=== PATIENT | female | born 1960 | race Caucasian/White ===

== ENCOUNTER 2019-05-30 18:27 | Emergency (ER) | payer MEDICARE, BC, SELFPAY ==
--- NOTE | ~2019-05-30 | CT_ITS ---
EXAMINATION: CT brain wo con DATE: 05/30/2019 18:59 INDICATION: Histiocytosis. Pituitary tumor. TECHNIQUE: Computed tomography (CT) of the head was performed without intravenous contrast. The dose- length product was 605.33 mGy-cm. The mA was adjusted according to patient size. Iterative reconstruc tion technique was employed. COMPARISON: CT dated 04/07/2018 FINDINGS: Generalized atrophy. There are scattered mild periventricular and subcortical white matter changes, most likely related to small vessel ischemic disease (microangiopathy). No acute intracrania l hemorrhage, infarction, mass or mass effect. No ventriculomegaly or midline shift. Basilar cisterns are patent. Paranasal sinuses and mastoids are pneumatized. No depressed skull fractures. No pituita ry masses are identified. Midline sagittal images are unremarkable. IMPRESSION: 1. No acute intracranial abnormality. Reviewed, dictated and finalized at location A.
--- NOTE | 2019-05-30 18:31 | ED.NAVMDI ---
HPI - Nausea/Vomiting/Diarrhea General Chief complaint: Abdominal Pain <Jude Boswell MD - Last Filed: 05/30/19 20:19> Stated complaint: N/V/D <Jude Boswell MD - Last Filed: 05/30/19 20:19> Time Seen by Provider: 05/30/19 18:30 <Jude Boswell MD - Last Filed: 05/30/19 20:19> Source: patient and family () <Jude Boswell MD - Last Filed: 05/30/19 20:19> Mode of arrival: EMS <Jude Boswell MD - Last Filed: 05/30/19 20:19> Limitations: no limitations <Jude Boswell MD - Last Filed: 05/30/19 20:19> History of Present Illness HPI Narrative: A 59 y/o female presents to the ED, via EMS, with c/o N/V/D. Pt states that the N/V/D started 3-4 days and has been constant since. She notes that she has had chronic diarrhea and vomiting for years. Her last episode of emesis was at 1500 today. She reports poor appetite, diffuse ABD pain, generalized weakness, lethargy, and back pain, but denies CP, SOB, cough, and decreased liquid intake. The ABD pain started 2 days ago and is intermittent. She denies any increased stress. 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 The patient's adds that she is at her baseline in the ED. Her last MRI was in February 2019, and she has one scheduled in July 2019. <Jude Boswell MD - Last Filed: 05/30/19 20:19> MD elicited complaint: nausea, vomiting and diarrhea <Jude Boswell MD - Last Filed: 05/30/19 20:19> Onset (ago): day(s) (3-4) <Jude Boswell MD - Last Filed: 05/30/19 20:19> Associated abdominal pain: Yes <Jude Boswell MD - Last Filed: 05/30/19 20:19> Location of pain: diffuse <Jude Boswell MD - Last Filed: 05/30/19 20:19> Pain consistency: intermittent <Jude Boswell MD - Last Filed: 05/30/19 20:19> Associated symptoms: loss of appetite, weakness (Generalized) and other (Diffuse ABD pain, back pain, lethargy) <Jude Boswell MD - Last Filed: 05/30/19 20:19> Related Data Allergies/Adverse reactions: Allergies Allergy/AdvReac Type Severity Reaction Status Date / Time amoxicillin Allergy Unknown Hives / Verified 05/30/19 18:47 Red Face clavulanic acid Allergy Unknown Hives / Verified 05/30/19 18:47 Red Face SHELLFISH Allergy Unknown Unknown Uncoded 05/30/19 18:47 <Jude Boswell MD - Last Filed: 05/30/19 20:19> Review of Systems Review of Systems: All systems reviewed & are unremarkable except as noted in HPI and below <Jude Boswell MD - Last Filed: 05/30/19 20:19> Constitutional: Constitutional: Reports poor appetite, Reports weakness (Generalized) and Reports other (Reports: lethargy; Denies: decreased liquid intake) <Jude Boswell MD - Last Filed: 05/30/19 20:19> Cardiovascular: Cardiovascular: Denies chest pain <Jude Boswell MD - Last Filed: 05/30/19 20:19> Respiratory: Respiratory: Denies cough and Denies dyspnea <Jude Boswell MD - Last Filed: 05/30/19 20:19> Gastrointestinal: Gastrointestinal: Reports abdominal pain (Diffuse), Reports diarrhea, Reports nausea and Reports vomiting <Jued Boswell MD - Last Filed: 05/30/19 20:19> Musculoskeletal: Musculoskeletal: Reports back pain <Jude Boswell MD - Last Filed: 05/30/19 20:19> [facility] Past Medical History Medical History: Medical History (Updated 05/30/19 @ 20:07 by Jude Boswell MD) Brain tumor (benign) According to it is on her pituitary Diabetes GERD (gastroesophageal reflux disease) History of blood transfusion History of chemotherapy History of radiation therapy HTN (hypertension) Hyperlipidemia Hypothyroid Pneumonia UTI (urinary tract infection) <Jude Boswell MD - Last Filed: 05/30/19 20:19> Surgical History Surgical History: Surgical History (Updated 05/30/19 @ 18:42 by Kiersten King) History of hysterectomy <Jude Boswell MD - Last Filed: 05/30/19 20:19> Social History Social History: Social History (Updated 05/30/19 @ 18:42 by Kiersten
[2019-05-30 18:35] VITALS: BP 134/68; PULSE 75; RESP 16; TEMP 36.7; O2SAT 96
[2019-05-30] MEDS: SODIUM CHLORIDE 0.9% IV 1,000 ML 999 ML IV CONT (19:13)
[2019-05-30] MEDS: METOCLOPRAMIDE HCL INJ 10 MG/2 ML VIAL IV PUSH (19:13)
[2019-05-30 19:15] LABS: Basophils Percent Auto 0.2 % (0.2-1.2); Eosinophils Absolute Auto 0.1 K/mm3 (0-0.3); Eosinophils Percent Auto 1.6 % (0-4.4); Immature Granulocyte Absolute 0.01 K/mm3 (0.00-0.031); Immature Granulocyte Percent A 0.2 % (0-0.5); Lymphocytes Absolute Auto 1.54 K/mm3 (0.9-3.2); Lymphocytes Percent Auto 27.8 % (18.3-44.2); Mean Corpuscular HGB Conc 29.7 g/dl (32-36); Mean Corpuscular Volume 77.4 fl (80-100); Mean Platelet Volume 9.7 fl (7.4-10.4); Monocytes Absolute Auto 0.9 K/mm3 (0.1-0.6); Monocytes Percent Auto 16.3 % (2.6-8.5); Neutrophils Percent Auto 53.9 % (45.5-73.1); Platelet Count Result 254 k/mm3 (150-375); Red Blood Count 4.78 M/mm3 (4.2-5.4); White Blood Count 5.5 K/mm3 (4.5-10.0)
[2019-05-30 19:21] VITALS: BP 141/66; PULSE 75; RESP 18; O2SAT 100
[2019-05-30 19:25] LABS: Hypochromasia 2+ (NORMAL); Ovalocytes 1+ (NORMAL); Platelet Estimate Adequate (Adequate); Stomatocytes 1+ (NORMAL)
[2019-05-30 19:26] LABS: Alanine Aminotransferase 19 U/L (4-35); Albumin Level 3.6 g/dL (3.5-5.1); Alkaline Phosphatase 121 U/L (38-126); Aspartate Amino Transferase 33 U/L (14-36); Bilirubin,Total 0.7 mg/dL (0.2-1.3); Blood Urea Nitrogen 3 mg/dL (7-17); Calcium 9.4 mg/dL (8.4-10.2); Carbon Dioxide 29 mmol/L (22-30); Chloride 100 mmol/L (98-107); Estimated Glomerular Filt Rate 42; Glucose 104 mg/dL (65-105); Potassium 2.9 mmol/L (3.4-5.0); Sodium 138 mmol/L (137-145)
[2019-05-30] MEDS: MORPHINE SULFATE 4 MG/ML INJ IV PUSH (20:00)
[2019-05-30] MEDS: ONDANSETRON INJ 4 MG/2 ML VIAL IV PUSH (20:00)
[2019-05-30] MEDS: POTASSIUM CHLORIDE 20 MEQ TABLET 40 MEQ PO (20:07)
[2019-05-30 20:52] VITALS: BP 123/54; PULSE 80; RESP 19; O2SAT 100
[2019-05-30 21:12] LABS: Add Urine Microscopic? NO; Appearance Urine Clear (Clear); Bilirubin Urine Negative (Negative); Blood Urine Negative (Negative); Color Urine Straw (Yellow); Glucose Urine UA Negative (Negative); Ketones Urine Negative (Negative); Leukocyte Esterase Ur Negative LEU/UL (Negative); Nitrate Urine Negative (Negative); Protein Urine Negative (Negative); Specific Grav Ur 1.003 (1.001-1.035); Urobilinogen Urine Negative mg/dL (<2.0)
[2019-05-30 21:41] VITALS: BP 118/65; PULSE 83; RESP 14; TEMP 36.8; O2SAT 96
== END 2019-05-30 21:55 | disposition home or self-care (01) ==
PROVIDERS: Emergency Medicine; Emergency Provider Emergency Medicine
DX: K52.9 Noninfective gastroenteritis and colitis, unspecified (principal); R11.10 Vomiting, unspecified; E87.6 Hypokalemia; E11.9 Type 2 diabetes mellitus without complications; I10 Essential (primary) hypertension; E03.9 Hypothyroidism, unspecified; D33.2 Benign neoplasm of brain, unspecified
CPT/HCPCS: 36415; 51701; 70450; 80053; 81003; 85025; 96361; 96374; 96375; 96376; 99284; A9270; J1200; J2270; J2405; J2765; J7030

== ENCOUNTER 2020-06-08 19:33 | Emergency (ER) | payer MEDICARE, SELFPAY ==
--- NOTE | ~2020-06-08 | CT_ITS ---
EXAMINATION: CT cervical spine wo con DATE: 06/08/2020 20:05 INDICATION: Patient fell and struck face. Neck injury. TECHNIQUE: Computed tomography (CT) of the cervical spine was performed without intravenous contrast. Automated exposure control and iterative reconstruction technique were employed. Exam dose: 475.68 mGy-cm total exam DLP. COMPARISON: None FINDINGS: C1 and C2 are normally aligned and the odontoid process is intact. No fracture or dislocati on or locked facet or prevertebral soft tissue swelling is detected. There is mild degenerative disease and mild retrolisthesis and posterior spurring at C3-4. Moderate degenerative disc disease at C5-6 and C6-7. There is degenerative change at the apophyseal joints.. IMPRESSION: Degenerative changes; no fracture or dislocation or locked facet Reviewed, dictated and finalized at Location A. Reviewed, dictated and finalized at location A.
--- NOTE | ~2020-06-08 | XR_ITS ---
XR pelvis 1-2V DATE: 06/08/2020 20:22 INDICATION: Fall. Generalized pelvic pain. TECHNIQUE: AP pelvis COMPARISON: None FINDINGS: The pubic symphysis and sacroiliac joints are intact. Hip joint spaces are symmetric and re latively preserved. No pelvic fracture or bone destruction is detected. No fracture or dislocation of either hip is noted . IMPRESSION: No evidence of pelvic fracture Reviewed, dictated and finalized at location A.
--- NOTE | ~2020-06-08 | CT_ITS ---
EXAMINATION: CT brain wo con DATE: 06/08/2020 20:05 INDICATION: Fall. Patient struck face. History of brain tumor. TECHNIQUE: Computed tomography (CT) of the head was performed without intravenous contrast. The mA wa s adjusted according to patient size. Iterative reconstruction technique was employed. Exam dose: 60 5.33 mGy-cm total exam DLP. COMPARISON: 05/30/2019 CT brain 01/05/2019 CT brain FINDINGS: Plate and screws are noted overlying the right frontal bone. No fracture or bone destruction is evident. Included paranasal sinuses and mastoid air cells are normally developed and aerated. No intracranial mass lesion or hemorrhage or cerebrovascular accident is evident. Normal ventricular size. There is no midline shift or mass effect. No subdural or epidural hematoma. IMPRESSION: No acute intracranial finding or surgery change since prior examinations Reviewed, dictated and finalized at Location [facility]. Reviewed, dictated and finalized at location A. IMPRESSION: No acute intracranial finding or surgery change since prior examin ations
--- NOTE | ~2020-06-08 | XR_ITS ---
XR knee RT min 4V DATE: 06/08/2020 20:22 INDICATION: Fall. Right knee bruising. TECHNIQUE: 4 views COMPARISON: None FINDINGS: Mild tricompartment osteoarthritis. No fracture or dislocation or joint effusion. No periosteal reaction or bone destruction. No radiopaq ue interarticular loose body or chondrocalcinosis. IMPRESSION: Mild tricompartment osteoarthritis No fracture or dislocation or joint effusion Reviewed, dictated and finalized at location A.
--- NOTE | ~2020-06-08 | XR_ITS ---
XR chest 1V portable DATE: 06/08/2020 20:22 INDICATION: Fall. Right chest pain TECHNIQUE: AP chest COMPARISON: 01/05/2019 AP chest FINDINGS: Right Port-A-Cath catheter tip overlies the superior aspect of the right atrium. Normal heart size. No hilar or mediastinal enlargement. Possible right-sided pulmonary masses, right mid and lower lung zones. No pulmonary infiltrate or consolidation, pleural effusion or pulmonary vascular congestion or pneumo thorax. Diffuse osteopenia. Probable old surgical neck fracture deformity of proximal left humerus. Levoscoliosis and degenerativ e change of the thoracic spine. IMPRESSION: Possible right pulmonary masses Right Port-A-Cath Reviewed, dictated and finalized at location A.
--- NOTE | ~2020-06-08 | XR_ITS ---
XR elbow RT min 3V DATE: 06/08/2020 20:22 INDICATION: Fall. Right elbow pain. TECHNIQUE: 4 views COMPARISON: None FINDINGS: No fracture or dislocation or joint effusion, periosteal reaction or bone destruction is de tected. There is spurring of the coronoid process of the proximal ulna. IMPRESSION: No fracture, dislocation or joint effusion is detected Reviewed, dictated and finalized at location A.
[2020-06-08 19:37] VITALS: BP 132/66; PULSE 95; RESP 17; TEMP 36.2; O2SAT 97
--- NOTE | 2020-06-08 21:32 | ED.HEATRA ---
HPI - Head Injury General Chief complaint: Head Injury Stated complaint: fall/head injury Source: RN notes reviewed History of Present Illness HPI Narrative: Patient presents to emergency department from [facility] via EMS for a fall. Patient has an unsteady gait secondary to brain tumor currently being treated downtown patient states she had a fall today denies any loss of consciousness noting bruising swelling in her left forehead also notes some right knee pain as well as right elbow pain she denies any loss of consciousness she denies any vision changes chest pain shortness of breath abdominal pain or any other symptoms Related Data Allergies Allergy/AdvReac Type Severity Reaction Status Date / Time amoxicillin Allergy Unknown Hives / Verified 05/30/19 18:47 Red Face clavulanic acid Allergy Unknown Hives / Verified 05/30/19 18:47 Red Face SHELLFISH Allergy Unknown Unknown Uncoded 05/30/19 18:47 Review of Systems Review of Systems: Narrative: Gen.: Denies fevers or chills Eyes: Denies eye pain or visual change ENT: Denies congestion Respiratory: Denies shortness of breath or cough CV: Denies chest pain or palpitations GI: Denies abdominal pain nausea, emesis or diarrhea Musculoskeletal: See HPI Neuro: Denies numbness, tingling, weakness or focal weakness Skin: Denies rash Except as documented, all other systems reviewed and negative PMFSH Past Medical History Medical History Brain tumor (benign) According to it is on her pituitary Diabetes GERD (gastroesophageal reflux disease) History of blood transfusion History of chemotherapy History of radiation therapy HTN (hypertension) Hyperlipidemia Hypothyroid Pneumonia UTI (urinary tract infection) Surgical History Surgical History (Updated 05/30/19 @ 18:42 by Kiersten King) History of hysterectomy Social History Social History Smoking status: Never smoker Gender identity (if verbalized by the patient): Female Exam Narrative: Exam Narrative: APPEARANCE: No acute distress, nontoxic, resting in bed EYES: EOMI, PERRL HEENT: Normocephalic, swelling and ecchymosis over left eyebrow with mild ecchymosis over inferior orbit no step-off, no tenderness or zygomatic arch range of motion of the jaw without pain airway patent RESPIRATORY: No respiratory distress Clear to auscultation bilaterally with no rhonchi wheezing or rales. CARDIOVASCULAR: Regular rate and rhythm without murmurs rubs or gallops. ABDOMINAL: Soft, nontender, nondistended, no rebound or guarding MUSCULOSKELETAl: Moves all extremities. No clubbing, cyanosis or edema. Palpation of the right posterior elbow no sign ecchymosis range of motion elements of the right shoulder and wrist palpation right anterior knee with slight ecchymosis present, no tenderness over the medial or lateral near the posterior knee no tenderness of the right hip or ankle bilateral radial and dorsalis pedis pulses 2+, no tenderness left upper and lower extremity NEURO: Awake and alert x 3. Following commands, speech normal, no focal deficits SKIN:: Warm, dry. No rashes lesions or abrasions PSYCHIATRIC: Normal affect/mood, Course Course Emergency Course: Patient able to get up and ambulate in ED with no difficulty Discussed with Dr. Rodríguez for radiology chest x-ray. At this time he recommends patient have an outpatient CT scan for further evaluation of questionable masses Called and discussed with patient's Justino updated on plan for discharge back to facility discussed chest x-ray and need for follow-up with the primary saw patient for CT scan in agreement at this time Called and discussed with [facility] care nurse who states patient's PCP is listed as Dr. Sousa who is an basting marker at [facility]. I discussed with the patient's about primary and he states that follow
[2020-06-08 22:10] VITALS: BP 142/84; PULSE 74; RESP 16; O2SAT 98
--- NOTE | 2020-06-08 22:14 | PC.NURSE ---
Called [facility] for return transport to facility...ETA 23:00
[2020-06-09 00:18] VITALS: BP 136/74; PULSE 77; RESP 18; O2SAT 97
[2020-06-09 02:28] VITALS: BP 140/79; PULSE 76; RESP 18; O2SAT 97
== END 2020-06-09 02:29 ==
PROVIDERS: Emergency Provider Emergency Medicine
DX: S00.83XA Contusion of other part of head, initial encounter (principal); S50.01XA Contusion of right elbow, initial encounter; S80.01XA Contusion of right knee, initial encounter; D49.6 Neoplasm of unspecified behavior of brain; M17.11 Unilateral primary osteoarthritis, right knee; E11.9 Type 2 diabetes mellitus without complications; K21.9 Gastro-esophageal reflux disease without esophagitis; I10 Essential (primary) hypertension; E78.5 Hyperlipidemia, unspecified; E03.9 Hypothyroidism, unspecified; Z87.440 Personal history of urinary (tract) infections; W19.XXXA Unspecified fall, initial encounter
CPT/HCPCS: 70450; 71045; 72125; 72170; 73080; 73564; 99284

== ENCOUNTER 2020-07-24 23:28 | Emergency (ER) | payer MEDICARE, SELFPAY ==
--- NOTE | ~2020-07-24 | XR_ITS ---
EXAMINATION: XR chest 1V portable DATE: 07/24/2020 23:58 INDICATION: Cough. TECHNIQUE: A single frontal view of the chest was obtained. COMPARISON: Chest single view 06/08/2020, CT abdomen and pelvis 01/05/2019 FINDINGS: The chest demonstrates clear lungs without pneumonia, pleural effusion, or pneumothorax. Th e heart size is normal. There is a right internal jugular port with tip in superior vena cava. IMPRESSION: 1. No acute cardiopulmonary disease. Reviewed, dictated and finalized at location A.
[2020-07-24 23:27] VITALS: BP 102/70; PULSE 87; RESP 22; TEMP 36.7; O2SAT 98
[2020-07-24 23:35] VITALS: BP 102/70; PULSE 81; RESP 19; TEMP 36.7; O2SAT 96; O2SAT 97
--- NOTE | 2020-07-24 23:38 | PC.NURSE ---
Pt presents from a memory care facility. Per EMS, staff states pt is obsessing over finding the second story of the facilty, of which there is not. Pt is said to have been wandering around the facility and into other pt's rooms looking for the door that leads to the second floor. When staff attempted to redirect her and advised her that there was no second floor, pt became combative. Pt is calm and cooperative with staff at this time. Pt states she is attempting to get to the second floor because her bedroom is up there. Pt is insistent that facility has multiple floors and she just wants to go to her room. Pt denies suicidal and homicidal ideations. Vitals are stable and pt in no obvious distress at this time. Breathing noted to be even and unlabored with O2 saturation of 96% on room air. EDMD presented to bedside. Call button and personal items within reach. Pt advised to press call button for assistance. Warm blanket provided for comfort.
--- NOTE | 2020-07-25 00:02 | PC.NURSE ---
Spoke with son, Osmani, who called into ED and updated him on poc; all questions and concerns addressed. Son advises to give him a call at [phone] with all updates and to leave a message if he is unavailable.
[2020-07-25 00:04] LABS: Basophils Percent Auto 0.1 % (0.2-1.2); Eosinophils Absolute Auto 0.2 K/mm3 (0-0.3); Eosinophils Percent Auto 1.3 % (0-4.4); Hemoglobin 10.4 g/dL (12.0-15.0); Immature Granulocyte Absolute 0.04 K/mm3 (0.00-0.031); Immature Granulocyte Percent A 0.4 % (0-0.5); Lymphocytes Percent Auto 22.9 % (18.3-44.2); Mean Corpuscular HGB Conc 29.7 g/dl (32-36); Mean Corpuscular Hemoglobin 24.8 pg (26-34); Mean Corpuscular Volume 83.3 fl (80-100); Mean Platelet Volume 9.7 fl (7.4-10.4); Monocytes Absolute Auto 0.8 K/mm3 (0.1-0.6); Monocytes Percent Auto 7.4 % (2.6-8.5); Neutrophils Absolute Auto 7.7 K/mm3 (1.3-6.7); Neutrophils Percent Auto 67.9 % (45.5-73.1); Platelet Count Result 253 k/mm3 (150-375); Red Cell Distribution Width 16.7 % (11.5-14.5); White Blood Count 11.4 K/mm3 (4.5-10.0)
[2020-07-25 00:14] LABS: Acetaminophen < 10 ug/mL (10-30); Alanine Aminotransferase 17 U/L (4-35); Albumin Level 3.6 g/dL (3.5-5.1); Alkaline Phosphatase 145 U/L (38-126); Anion Gap 7 mmol/L (8-16); Aspartate Amino Transferase 24 U/L (14-36); Bilirubin,Total 0.2 mg/dL (0.2-1.3); Blood Urea Nitrogen 11 mg/dL (7-17); Calcium 9.4 mg/dL (8.4-10.2); Carbon Dioxide 26 mmol/L (22-30); Chloride 112 mmol/L (98-107); Estimated CRCL calculation 57 ml/min; Estimated Glomerular Filt Rate 57; Ethanol < 10 mg/dL (<10); Glucose 106 mg/dL (65-105); Salicylate < 1.0 mg/dL (2-20); Sodium 145 mmol/L (137-145)
--- NOTE | 2020-07-25 00:25 | ED.GENADULT ---
HPI - General Adult General Chief complaint: Altered Mental Status Stated complaint: ACTING OUT/SWINGING AT STAFF Time Seen by Provider: 07/24/20 23:36 Related Data Allergies Allergy/AdvReac Type Severity Reaction Status Date / Time amoxicillin Allergy Unknown Hives / Verified 05/30/19 18:47 Red Face clavulanic acid Allergy Unknown Hives / Verified 05/30/19 18:47 Red Face SHELLFISH Allergy Unknown Unknown Uncoded 05/30/19 18:47 Review of Systems Review of Systems: Narrative: Patient is a 60-year-old female who presents the emergency department with chief complaint of needs medical evaluation. Patient is a resident of a local memory care unit and normally wanders the facility trying to walk up to the nonexistent second story. Tonight she got angry whenever she was redirected and took some swings at staff. The patient currently has no complaints and just wants to go home. Patient denies suicidal or homicidal ideation the facility wants to make sure that there is nothing medically wrong with the patient at this time. [facility] Past Medical History Medical History Brain tumor (benign) According to it is on her pituitary Diabetes GERD (gastroesophageal reflux disease) History of blood transfusion History of chemotherapy History of radiation therapy HTN (hypertension) Hyperlipidemia Hypothyroid Pneumonia UTI (urinary tract infection) Surgical History Surgical History History of hysterectomy Social History Social History Smoking status: Never smoker Gender identity (if verbalized by the patient): Female Sexual Orientation (if Verbalized by the Patient): Straight or Heterosexual Exam Narrative: Exam Narrative: GENERAL: Well-appearing, well-nourished, and in no acute distress. HEAD: Normocephalic, atraumatic. EYES: PERRLA and EOMI. ENT: Nares clear, no rhinorrhea or epistaxis. Mucous membranes moist. NECK: Supple. CHEST: Clear to auscultation. No respiratory distress. HEART: Regular rate and rhythm. No murmur heard. Normal peripheral pulses. ABDOMEN: Soft, nontender, nondistended, normal active bowel sounds. EXTREMITIES: Normal range of motion. No edema. SKIN: Warm, dry, no rash. NEURO: No focal deficits. Alert and oriented x3. PSYCH: Normal mood and affect. Course Vital Signs Vital signs: Vital Signs Temperature 36.7 C 07/24/20 23:27 Pulse Rate 87 07/24/20 23:27 Respiratory Rate 22 H 07/24/20 23:27 Blood Pressure 102/70 07/24/20 23:27 Pulse Oximetry 98 07/24/20 23:27 Temperature 36.6 C 07/25/20 05:29 Pulse Rate 80 07/25/20 06:48 Respiratory Rate 20 07/25/20 06:48 Blood Pressure 150/93 H 07/25/20 06:48 Pulse Oximetry 100 07/25/20 06:48 Medical Decision Making Vital Signs Vital Signs: Vital Signs Temperature 36.7 C 07/24/20 23:27 Pulse Rate 87 07/24/20 23:27 Respiratory Rate 22 H 07/24/20 23:27 Blood Pressure 102/70 07/24/20 23:27 Pulse Oximetry 98 07/24/20 23:27 Temperature 36.6 C 07/25/20 05:29 Pulse Rate 80 07/25/20 06:48 Respiratory Rate 20 07/25/20 06:48 Blood Pressure 150/93 H 07/25/20 06:48 Pulse Oximetry 100 07/25/20 06:48 Lab Data Result diagrams: 07/24/20 23:54 07/24/20 23:54 Labs: Lab Results 07/24/20 07/24/20 07/24/20 Range/Units 23:54 23:54 23:54 WBC 11.4 H (4.5-10.0) K/mm3 RBC 4.20 (4.2-5.4) M/mm3 Hgb 10.4 L (12.0-15.0) g/dL Hct 35.0 L (37.0-47.0) % MCV 83.3 (80-100) fl MCH 24.8 L (26-34) pg MCHC 29.7 L (32-36) g/dl RDW 16.7 H (11.5-14.5) % Plt Count 253 (150-375) k/mm3 MPV 9.7 (7.4-10.4) fl Immature Gran % (Auto) 0.4 (0-0.5) % Neut % (Auto) 67.9 (45.5-73.1) % Lymph % (Auto) 22.9 (18.3-44.2) % [place] % (Aut
--- NOTE | 2020-07-25 00:31 | PC.NURSE ---
Pt assisted on and off of bedpan. Urine specimen collected and sent to lab. Pt resting on cart in its lowest position with call button and personal items within reach and watching TV. Pt advised to press call button for assistance.
[2020-07-25 00:45] LABS: Add Urine Microscopic? YES; Appearance Urine Clear (Clear); Bacteria Urine Trace /hpf; Bilirubin Urine Negative (Negative); Blood Urine Negative (Negative); Color Urine Colorless (Yellow); Glucose Urine UA Negative (Negative); Ketones Urine Negative (Negative); Leukocyte Esterase Ur 2+ LEU/UL (Negative); Nitrate Urine Negative (Negative); Protein Urine Negative (Negative); Squamous Epithelial Cell Urine Occasional /hpf (Few); Urobilinogen Urine Negative mg/dL (<2.0)
[2020-07-25 00:46] LABS: Specific Grav Ur 1.003 (1.001-1.035)
[2020-07-25 01:02] LABS: Amphetamine Screen Urine Negative (Negative); Barbiturate Screen Urine Negative (Negative); Benzodiazepines Screen Urine Negative (Negative); Cannabinoid Screen Urine Negative (Negative); Cocaine Screen Urine Negative (Negative); Methadone Screen Urine Negative (Negative); Opiate Screen Urine Negative (Negative); Phencyclidine Screen Urine Negative (Negative)
[2020-07-25 01:10] VITALS: BP 147/75; PULSE 77; RESP 20; TEMP 36.6; O2SAT 96
--- NOTE | 2020-07-25 01:10 | PC.NURSE ---
Pt resting on cart watching tv with call button and personal items within reach. Vitals are stable and pt in no obvious distress.
--- NOTE | 2020-07-25 01:12 | PC.NURSE ---
Called son, Osmani, who states he will come grain picker pt if there are any issues with transporting her back to facility.
--- NOTE | 2020-07-25 01:13 | PC.NURSE ---
[facility] called for pt transportation back to [facility].
--- NOTE | 2020-07-25 01:17 | PC.NURSE ---
Pt provided ice water per ok from [facility].
--- NOTE | 2020-07-25 02:11 | PC.NURSE ---
Pt on cart resting with call button and personal items within reach watching tv. Advised to press call button for assistance.
[2020-07-25 03:09] VITALS: BP 145/74; PULSE 72; RESP 20; O2SAT 98
--- NOTE | 2020-07-25 03:09 | PC.NURSE ---
Pt resting on cart in its lowest position with call button and personal items within reach. Advised to press call button for assistance. [facility] called and states transport is pushed from 0300 to 0600. Report called to [phone] at 0307 and given to ERIN Booker. Updated on poc and advised that pt is due to return to facility after 0600.
--- NOTE | 2020-07-25 03:36 | PC.NURSE ---
Pt assisted on and off of bedside commode and is now back on cart resting. Call button and personal items within reach. Advised to press call button for assistance.
[2020-07-25 04:24] VITALS: BP 145/76; PULSE 70; RESP 19; O2SAT 98
--- NOTE | 2020-07-25 04:24 | PC.NURSE ---
Pt on cart watching tv. Call button and personal items within reach. Vitals are stable and pt in no obvious distress. Pt alert and oriented to baseline of x3. Advised to press call button for assistance.
--- NOTE | 2020-07-25 05:28 | PC.NURSE ---
Pt resting on cart in its lowest position with call button and personal items within reach. Pt is anxious and ready to go home. call button and personal items within reach and advised to press for assistance.
[2020-07-25 05:29] VITALS: PULSE 76; RESP 15; TEMP 36.6; O2SAT 98
--- NOTE | 2020-07-25 06:12 | PC.NURSE ---
[facility] called and states pt transportation time has been pushed to 0730.
--- NOTE | 2020-07-25 06:34 | PC.NURSE ---
Pt upset because she is ready to go home and is attempting to elope from ED. EDMD ordered medications.
[2020-07-25] MEDS: LORazepam INJ (*CRX) 2 MG/ML VIAL 1 MG IM (06:40)
--- NOTE | 2020-07-25 06:47 | PC.NURSE ---
Medications administered and pt now resting on cart in its lowest position with call button and personal items within reach/. Pt advised to press call button for assistance.
[2020-07-25 06:48] VITALS: BP 150/93; PULSE 80; RESP 20; O2SAT 100
--- NOTE | 2020-07-25 07:22 | PC.NURSE ---
patient placed on bed alarm at this time due to attempting to leave the department, patient has altered mental status
--- NOTE | 2020-07-25 07:46 | PC.NURSE ---
updated [facility] eta [id number]
--- NOTE | 2020-07-25 08:30 | PC.NURSE ---
patient's memory care called for update, sow manager notified that patient will be returning by EMS and that patient does have prescription for diagnosed UTI
--- NOTE | 2020-07-25 09:24 | PC.NURSE ---
Patients transport delayed per [facility], unable to get ETA due to high volume of calls.
== END 2020-07-25 11:32 ==
PROVIDERS: Emergency Provider Emergency Medicine
DX: N30.00 Acute cystitis without hematuria (principal); E11.9 Type 2 diabetes mellitus without complications; K21.9 Gastro-esophageal reflux disease without esophagitis; I10 Essential (primary) hypertension; E78.5 Hyperlipidemia, unspecified; E03.9 Hypothyroidism, unspecified; Z92.3 Personal history of irradiation; Z92.21 Personal history of antineoplastic chemotherapy; Z87.440 Personal history of urinary (tract) infections; Z87.01 Personal history of pneumonia (recurrent); Z79.899 Other long term (current) drug therapy
CPT/HCPCS: 36415; 71045; 80053; 80307; 81001; 85025; 96372; 99283; J2060